=== PATIENT | male | born 1950 | race Caucasian/White ===

== ENCOUNTER 2020-06-17 12:00 | Emergency (ER) | payer MEDICAID ==
[~2020-06-17] VITALS: Ht 172.7 cm; Wt 70.0 kg
[2020-06-17] MEDS ORDERED: TETANUS, DIPHTHERIA, PERTUSSIS VAC/PF 0.5ML (>7YR OLD) IM ONE (12:45)
[2020-06-17] MEDS ORDERED: BACITRACIN ZINC OINT UDPKT TOP ONE (12:45)
[2020-06-17] MEDS ORDERED: LIDOCAINE HCL/PF 1% 10 MG/ML 5ML VIAL IJ ONE (12:45)
[2020-06-17] MEDS ORDERED: ACETAMINOPHEN 325MG TABLET PO ONE (12:45)
[2020-06-17 15:14] VITALS: BP 156/77
== END 2020-06-17 15:16 | disposition home or self-care (01) ==
LOC: ER 12:16
DX: S41.111A Laceration without foreign body of right upper arm, initial encounter (principal); X58.XXXA Exposure to other specified factors, initial encounter; Y93.89 Activity, other specified; Y92.89 Other specified places as the place of occurrence of the external cause; Y99.8 Other external cause status
CPT/HCPCS: 12001; 73060; 90471; 90715; 99283; J3490

== ENCOUNTER 2020-06-20 13:32 | Emergency (ER) | payer MEDICAID ==
[~2020-06-20] VITALS: Ht 157.5 cm; Wt 59.0 kg
[2020-06-20 13:45] VITALS: BP 148/78
== END 2020-06-20 14:09 | disposition home or self-care (01) ==
LOC: ER 13:32
DX: Z48.00 Encounter for change or removal of nonsurgical wound dressing (principal)
CPT/HCPCS: 99281

== ENCOUNTER 2020-07-02 13:26 | Emergency (ER) | payer MEDICAID ==
[~2020-07-02] VITALS: Ht 162.6 cm; Wt 62.0 kg
[2020-07-02 13:31] VITALS: BP 137/79
== END 2020-07-02 15:00 | disposition home or self-care (01) ==
LOC: ER 13:26
DX: Z48.02 Encounter for removal of sutures (principal)
CPT/HCPCS: 99281